=== PATIENT | male | born 1980 | race Caucasian/White ===

== ENCOUNTER 2021-05-03 19:38 | Emergency (ER) | payer OTHER | END 2021-05-03 21:34 | disposition home or self-care (01) | LOC: FER 19:38 | DX: S56.322A Laceration of extensor or abductor muscles, fascia and tendons of left thumb at forearm level, initial encounter (principal); Z23 Encounter for immunization; Z88.0 Allergy status to penicillin; W26.0XXA Contact with knife, initial encounter; Y92.009 Unspecified place in unspecified non-institutional (private) residence as the place of occurrence of the external cause | CPT/HCPCS: 90471; 90715 ==